=== PATIENT | female | born 1955 | race Caucasian/White ===

== ENCOUNTER → 2017-02-03 | Day surgery (SDC) | payer OTHER ==
[~2017-02-03] VITALS: Ht 162.6 cm; Wt 49.9 kg
[~2017-02-03] MED LIST: 0.9% Sodium Chloride 1,000 ML IV ONE; 0.9% Sodium Chloride 1,000 ML IV SCH; ALBU8.5H2 INHALATION; ASPI-973 PO; AZTH50T PO; METH10TA4 PO; METO-369 PO; Midazolam 5 mg/mL 10 mL Inj IV ONE; ONDA-53 PO; PRD2.5T PO; Sodium Chloride LOK Flush 10 mL Syringe IV PRN; fentaNYL-PF 50 mCg/mL 2 mL Inj IVPUSH ONE; fentaNYL-PF 50 mCg/mL 2 mL Inj IVPUSH PRN
[2017-02-03 08:48] VITALS: BP 153/95; PULSE 74; RESP 14; O2SAT 99
--- NOTE | 2017-02-03 09:29 | PCM.ENDEGD ---
EGD Date of Service: Feb 03, 2017 Physician Claudy Randall MD Pre Procedure Diagnosis: Nausea and dysphagia Post Procedure Dx & Findings: Possible lisa esophagitis esophagitis gastritis Procedure Esophagogastroduodenoscopy PROCEDURE IN DETAIL: After proper sedation, Olympus video endoscope was inserted into patient's mouth and esophagus was successfully intubated. Scope introduced esophagus. Esophagus showed normal shiny whitish mucosa consistent with squamous cell component. Along the mid esophagus to proximal esophagus, whitish patches consistent with Lisa esophagitis noted. Brushing obtained for cytology. Z line was at 40 cm from the incisors. At the Z line, some edema and irritation noted as well as what appears to be a superficial healing ulcer. Biopsies obtained. Stomach further advanced to the stomach. The antrum and to some extent the distal body of the stomach showed some redness edema consistent with gastritis. Biopsies obtained Cardia fundus body antrum pylorus were all visualized. Retroflexion was done. Stomach was easily inflated and deflatable using air. Scope further advanced to the distal duodenum. Duodenum revealed normal villous structures with normal appearing folds without any mass ulcer erosion. Impression Possible lisa esophagitis Esophagitis with healing ulcer Gastritis Recommendation Patient was recently treated for Lisa esophagitis. If the lisa esophagitis is still there, I would like her to see infectious disease. Resume PPI. Follow up in GI clinic Presedation Assessment Risks and Benefits Informed consent was obtained from the patient after all risks and benefits including but not limited to drug reaction, infection, pain, bleeding, perforation, as well as alternatives were discussed. Patient monitoring Continuous pulse oximetry, cardiac monitoring, blood pressure monitoring, IV access, and oxygen at 2L per nasal cannula. Periprocedural Fentanyl: Fentanyl 75mcg Incrementally Midazolam: Midazolam 3mg Incrementally Complications There were no periprocedural complications identified. Post Procedure Plan Post Procedure Recommendations 1. Restrict activities today. 2. Resume normal activities in the morning. 3. Resume medications. 4. GERD behavioral modification: - Avoid fatty, acidic, spicy, large meals - Do not lie down after meals - Do not eat or drink anything for at least 2 1/2 hours before going to bed at night - Discontinue tobacco and alcohol - Decrease or avoid caffeine - Avoid chocolate and mints - Decrease weight - Avoid aspirin and non steroidal anti-inflammatory agents (NSAID) such as Aleve, Advil, Mobic, Naproxen, Ibuprofen, etc 5. Add proton pump inhibitor. Take 30 minutes before 1st meal of the day. 6. Patient informed of normal post procedure side effects as bloating, drowsiness, blood streaking in the stool 7. If gastric biopsy reveal H.pylori, continue with appropriate treatment 8. If small bowel biopsy reveals celiac, continue with appropriate treatment 9. Please don't hesitate to call me with any questions Claudy Randall MD Feb 03, 2017 09:29
[2017-02-03 09:34] VITALS: BP 149/107; PULSE 72; RESP 16; O2SAT 98
[2017-02-03 09:45] VITALS: BP 133/91; PULSE 73; RESP 16; O2SAT 98
[2017-02-03 09:49] VITALS: BP 142/91; PULSE 76; RESP 16; O2SAT 98
--- NOTE | 2017-02-09 09:22 | PATH ---
SURGICAL PATHOLOGY Attending Physician:Claudy Randall M.D. CASE STATUS: Signed Out PATIENT NAME: ALISON TERRAZAS PID: [id number] : 1955 DATE COLLECTED:02/03/2017 00:00 SPECIMEN: 1: Gastric, Biopsy 2: Esophagus, Biopsy CLINICAL HISTORY: 1). GASTRIC BIOPSY, RULE OUT H PYLORI 2). ESOPHAGEAL BIOPSY FINAL DIAGNOSIS: 1. Gastric Biopsy: Superficial portions of gastric body-type mucosa with no diagnostic abnormality. Negative for H. pylori organisms by H&E stains and immunohistochemistry studies. Negative for intestinal metaplasia, dysplasia, and malignancy. 2. Esophagus, Biopsy: Inflamed portion of squamocolumnar mucosa with no diagnostic abnormality. Please see comment. Negative for intestinal metaplasia/Mckeon's metaplasia. Negative for dysplasia and malignancy. ICD10: K29.7 NOTE: Part 2. There is a very scant region of squamous mucosa in this biopsy; the majority of the biopsy is columnar mucosa. GROSS DESCRIPTION: The specimen is received in two formalin filled containers labeled with the patient's name. 1). The specimen is labeled "gastric" and consists of 2 portions of tissue which aggregate to 0.3 x 0.3 x 0.2 CM. The specimen is entirely submitted in cassettes 1A. 2). The specimen is labeled "esoph" and consists of a less than 0.1 CM portion of tissue which is entirely submitted in cassette 2A. 02/04/2017DC MICRO DESCRIPTION: 1. An immunohistochemical stain was performed to evaluate for Helicobacter organisms and is negative. A control stain showed appropriate reactivity. This test was developed and its performance characteristics determined by [facility]. It has not been cleared or approved by the [place]. Food and Drug Administration. The FDA has determined that such clearance or approval is not necessary. This test is used for clinical purposes. It should not be regarded as investigational or for research. ICD-9 CODES: CPT CODES: 1: 27936, 79640 2: 24982 Electronically Signed Out Elizabeth Ramey MD [facility] [address], [place] [address] Technical component performed at [facility], [address], [place], [address]
== END | disposition home or self-care (01) ==
LOC: END 00:39
PROVIDERS: ATTEND Internal Medicine
DX: K29.70 Gastritis, unspecified, without bleeding (principal); K22.10 Ulcer of esophagus without bleeding; R13.10 Dysphagia, unspecified; E05.00 Thyrotoxicosis with diffuse goiter without thyrotoxic crisis or storm; J44.9 Chronic obstructive pulmonary disease, unspecified; B37.81 Candidal esophagitis; M43.10 Spondylolisthesis, site unspecified; M79.7 Fibromyalgia; M32.9 Systemic lupus erythematosus, unspecified; Z79.52 Long term (current) use of systemic steroids
CPT/HCPCS: 43239; 87102; G0500; J2250; J3010; J7030